=== PATIENT | female | born 1960 | race Caucasian/White ===

== ENCOUNTER 2019-03-21 12:40 | Observation (INO) ==
--- NOTE | 2019-03-21 13:08 | Diag Imaging Result Doc PS360 ---
EXAM: CHEST-2 VIEWS INDICATION: CP TECHNIQUE: 2 views COMPARISON: None. FINDINGS: There are scattered calcified granulomata throughout both lungs. Lungs are grossly clear, otherwise. There is no discrete pleural fluid collection or pneumothorax. There are calcified mediastinal lymph nodes indicating prior granulomatous disease. The cardiomediastinal silhouette and central vasculature are grossly unremarkable, otherwise. IMPRESSION: No evidence of acute pathology by plain radiograph. Electronically signed by Adolfo Hutson 03/21/2019 1:06 PM
[2019-03-21 13:48] LABS: BASO# 0.04 X1000 (0.0-0.2); BASO% 0.4 % (0.0-0.8); EOS# 0.16 X1000 (0.0-0.7); EOS% 1.6 % (0.0-10.0); HEMATOCRIT 39.3 % (37.0-47.0); HEMOGLOBIN 12.4 g/dL (12.0-16.0); LYMPH# 2.46 X1000 (1.2-3.4); LYMPH% 24.8 % (20.5-51.1); MCH 28.8 PG (27-31); MCHC 31.6 g/dL (33-37); MCV 91.4 FL (81-99); MONO# 0.88 X1000 (0.11-0.59); MONO% 8.9 % (1.7-9.3); MPV 9.8 FL (7.4-10.4); NEUT# 6.36 X1000 (1.4-6.5); NEUT% 64.3 % (42.2-75.2); PLT 292 X1000 (130-400); RDW 13.9 % (11.5-14.5)
[2019-03-21] MEDS ORDERED: NITROGLYCERIN SL ONE (13:49)
[2019-03-21] MEDS ORDERED: NITROGLYCERIN TOP ONE (13:49)
[2019-03-21 13:51] LABS: URINE SOURCE CLEAN CATCH
[2019-03-21 13:51] LABS: INR 0.89; PROTIME 12.8 Seconds (11.0-16.0)
[2019-03-21 13:52] LABS: PTT 25.2 Seconds (22.3-41.8)
[2019-03-21 14:00] LABS: BILIRUBIN URINE NEGATIVE (NEGATIVE); BLOOD URINE NEGATIVE (NEGATIVE); COLOR YELLOW; GLUCOSE URINE NEGATIVE (NEGATIVE); KETONE URINE TRACE mg/dL (NEGATIVE); LEUKOCYTES URINE NEGATIVE (NEGATIVE); NITRITE URINE NEGATIVE (NEGATIVE); PROTEIN URINE TRACE mg/dL (NEGATIVE); SP GRAVITY URINE 1.035; TURBIDITY URINE CLEAR (CLEAR); UROBILINOGEN URINE 2 mg/dL (NORMAL)
[2019-03-21 14:01] LABS: UR EPITHELIAL CELLS <10 /HPF (<10); URINE BACTERIA NEGATIVE /HPF; URINE RBC <10 /HPF (<10); URINE WBC <10 /HPF (<10)
[2019-03-21 14:18] LABS: AGAP 11; ALB/GLOB RATIO 1.6; ALBUMIN 3.6 g/dL (3.5-5.0); ALKALINE PHOSPHATASE 95 U/L (32-104); BUN 15 mg/dL (8-22); CALCIUM 9.4 mg/dL (8.8-10.2); CHLORIDE 104 mmol/L (98-107); CK PROFILE 25 U/L (24-173); COSMO 289; CREATININE 0.9 mg/dL (0.5-0.9); ESTIMATED GFR > 60; GLUCOSE 149 mg/dL (70-104); GOT 8 U/L (10-30); GPT 9 U/L (10-36); POTASSIUM 4.1 mmol/L (3.5-5.1); SODIUM 143 mmol/L (136-145); TCO2 28 mmol/L (25-35); TOTAL BILIRUBIN < 0.15 mg/dL (0.20-1.00); TOTAL PROTEIN 5.8 g/dL (6.3-8.3)
[2019-03-21 14:33] LABS: UR AMPHETAMINES QUAL NONE DETECTED (NONE DETECT); UR BARBITUATES QUAL NONE DETECTED (NONE DETECT); UR BENZODIAZEPIN QUAL NONE DETECTED (NONE DETECT); UR CANNABINOIDS QUAL NONE DETECTED (NONE DETECT); UR COCAINE QUAL NONE DETECTED (NONE DETECT); UR METHADONE QUAL PRESUMPTIVE POSITIVE (NONE DETECT); UR OPIATES QUAL PRESUMPTIVE POSITIVE (NONE DETECT); UR OXYCODONE QUAL NONE DETECTED (NONE DETECT); UR PCP QUAL NONE DETECTED (NONE DETECT)
--- NOTE | 2019-03-21 14:57 | PROVIDER DOCUMENTATION ---
This chart was entered by Mel Mckeon Scribe, acting as scribe for Krishna Adamson MD. HPI-Chest Pain - General Stated Complaint: chest pain Time Seen by Provider: 03/21/19 12:47 Source: patient Home Medications: Home Medication List Medication Instructions Recorded Confirmed Last Taken Type Hydralazine [Apresoline] 1 tab PO BID 03/21/19 03/21/19 Unknown History Hydrochlorothiazide 1 tab PO DAILY 03/21/19 03/21/19 Unknown History Hydrocodone Bit/Acetaminophen 1 tab PO BID 03/21/19 03/21/19 Unknown History [Hydrocodon-Acetaminoph 7.5-325] Irbesartan [Avapro] 1 tab PO DAILY 03/21/19 03/21/19 Unknown History Metoprolol [Lopressor] 1 tab PO DAILY 03/21/19 03/21/19 Unknown History Pregabalin [Lyrica] 1 cap PO BID 03/21/19 03/21/19 Unknown History Tramadol [Ultram] 1 tab PO BID 03/21/19 03/21/19 Unknown History - History of Present Illness-CP Nature of Presenting Problem: 58yof presents to ED by EMS cc chest pain, pressure, burning that radiates into her back since this morning. Pt reports she took 2 325mg aspirin and and Ativan, with no relief so she called EMS. Pt reports this feels like her 2 previous PR. 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 Location: reports: central Chest Pain Radiation: reports: back Quality of Pain: reports: burning, pressure Onset/Duration: this morning Timing: resolved prior to arrival Context/Activities at Onset: reports: light activity Modifying Factors: improves with: nothing Associated Symptoms: reports: denies symptoms Nitro Today/Relief: 0.4 mg x 1, provided by EMS, complete relief Aspirin Treatment Today: 325 mg x 1, provided at home Prior Chest Pain/Cardiac Workup: reports: heart attack Similar Symptoms Previously?: Yes Recently Seen Here or By Another Healthcare Provider: No Review of Systems - Adult - REVIEW OF SYSTEMS - ADULT Constitutional: reports: see HPI. denies: chills, fever, fatique Eyes: reports: no symptoms reported Ears, Nose, Mouth & Throat: reports: no symptoms reported Cardiovascular: reports: see HPI, chest pain. denies: palpitations, syncope Respiratory: reports: no symptoms reported Gastrointestinal: reports: see HPI. denies: diarrhea, nausea, vomiting Genitourinary: reports: no symptoms reported Musculoskeletal: reports: no symptoms reported Integumentary: reports: no symptoms reported Neurological: reports: no symptoms reported Psychiatric: reports: no symptoms reported Endocrine: reports: no symptoms reported Hematologic/Lymphatic: reports: no symptoms reported Allergic/Immunologic: reports: no symptoms reported All Other Systems: Reviewed and Negative Past History - Adult - PAST MEDICAL HISTORY-ADULT Review of Records: reports: Nursing Assessment Review, Medications Reviewed, Social history reviewed & non-contributory. Major Childhood Illnesses: reports: denies history Cardiovascular: reports: denies history Respiratory: reports: denies history Gastrointestinal: reports: denies history Obstetrical/Gynecological: reports: denies history Genitourinary: reports: denies history Musculoskeletal: reports: denies history Neurological: reports: denies history Endocrine/Immune: reports: denies history Other Conditions: reports: denies history - IMMUNIZATION STATUS Childhood Immunizations: See Nurse Assessment Flu Vaccine: See Nurse Assessment - FAMILY HISTORY Family History: reviewed, not pertinent - SOCIAL HISTORY Smoking: cigarettes, greater than 1 pack/day Provider spent 3-5 mins advising pt. on dangers of tobacco.: Discussed manners to quit use, and f/u contacts for add'l counseling. Substance Use: none/never Alcohol Use Frequency: rarely Living Situation: family (visiting from [place]) Physical Exam-General - PHYSICAL EXAM-ADULT Initial Vital Signs Reviewed: Yes - CONSTITUTIONAL General Appearance: appears well, alert, no apparent distress, anxious. negative: combative - EYES Eyes: PERRL/EOMI, pink conjunctivae. negative: meningismus, pale conjunctivae, photophobia - HEAD, EARS, NOSE, MOUTH & THROAT HENMT: normocephalic/atraumatic, moist mucous membranes, normal ENT inspection. negative: angioedema - RESPIRATORY Respiratory: chest non-tender, lungs clear, normal breath sounds, no pleuratic chest pain, no respiratory distress, no accessory muscle use. 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 negative: bradycardia, tachycardia - SKIN Integumentary: normal color, normal turgor, warm/dry. negative: cyanosis, diaphoresis, jaundice - PSYCHIATRIC Psych/Mental Status: normal mood/affect, normal thought content, normal thought process, oriented x 3, anxious. negative: disoriented x 3, disheveled, depressed affect - HEART Score HEART Score: History: Moderately Suspicious (MODERATE RISK) HEART Score: ECG: Non-Specific Repolarization Disturbance/LBBB/PM HEART Score: Age: 45-65 Years HEART Score: Risk Factors for Atherosclerotic Disease: > or = 3 Risk Factors or History of Atherosclerotic Disease HEART Score: Troponin: < or = Normal Limit (MODERATE RISK) Total HEART Score:: 5 Progress - PLAN OF CARE/RESULTS Progress/Plan/Lab Results: Vital Signs - 8 hr 03/21/19 12:47 03/21/19 12:55 03/21/19 14:02 Temperature 98.5 F Pulse Rate 86 84 90 Respiratory Rate 16 23 16 Blood Pressure 100/58 144/83 117/86 O2 Sat by Pulse Oximetry 95 95 96 03/21/19 14:03 03/21/19 14:10 03/21/19 14:13 Temperature Pulse Rate 90 91 H 87 Respiratory Rate 17 15 17 Blood Pressure 104/40 O2 Sat by Pulse Oximetry 97 95 95 03/21/19 14:20 03/21/19 14:22 Temperature Pulse Rate 88 86 Respiratory Rate 18 20 Blood Pressure 126/59 O2 Sat by Pulse Oximetry 94 L 92 L Laboratory Results - last 24 hr 03/21/19 03/21/19 03/21/19 13:33 13:33 13:33 WBC 9.90 RBC 4.30 Hgb 12.4 Hct 39.3 MCV 91.4 MCH 28.8 MCHC 31.6 L RDW Std Deviation 13.9 Plt Count 292 MPV 9.8 Neut % (Auto) 64.3 Lymph % (Auto) 24.8 Ida % (Auto) 8.9 Eos % (Auto) 1.6 Baso % (Auto) 0.4 Neut # (Auto) 6.36 Lymph # (Auto) 2.46 Ida # (Auto) 0.88 H Eos # (Auto) 0.16 Baso # (Auto) 0.04 PT INR PTT (Actin FS) Sodium 143 Potassium 4.1 Chloride 104 Carbon Dioxide 28 Anion Gap 11 BUN 15 Creatinine 0.9 Estimated GFR/1.73 m2 > 60 BUN/Creatinine Ratio 17 Glucose 149 H Calculated Osmolality 289 Calcium 9.4 Total Bilirubin < 0.15 L AST 8 L ALT 9 L Alkaline Phosphatase 95 Creatine Kinase 25 Troponin T Dtu-F-Kftjlduwghx Pept 307 H Total Protein 5.8 L Albumin 3.6 Globulin 2.2 Albumin/Globulin Ratio 1.6 Urine Source Urine Color Urine Turbidity Urine pH Ur Specific [place] Urine Protein Ur Glucose (Stick) Ur Ketones (Stick) Urine Blood Urine Nitrite Urine Bilirubin Urobilinogen Dipstick Urine Leukocytes Urine WBC (Auto) Urine RBC (Auto) U Epithel Cells (Auto) Urine Bacteria (Auto) Urine Opiates Screen Ur Oxycodone Screen Ur Methadone, Qual Ur Barbiturates Screen Ur Phencyclidine Scrn Ur Amphetamines Screen U Benzodiazepines Scrn Urine Cocaine Screen U Cannabinoids Screen 03/21/19 03/21/19 03/21/19 13:33 13:33 13:37 WBC RBC Hgb Hct MCV MCH MCHC RDW Std Deviation Plt Count MPV Neut % (Auto) Lymph % (Auto) Ida % (Auto) Eos % (Auto) Baso % (Auto) Neut # (Auto) Lymph # (Auto) Ida # (Auto) Eos # (Auto) Baso # (Auto) PT 12.8 INR 0.89 PTT (Actin FS) 25.2 Sodium Potassium Chloride Carbon Dioxide Anion Gap BUN Creatinine Estimated GFR/1.73 m2 BUN/Creatinine Ratio Glucose Calculated Osmolality Calcium Total Bilirubin AST ALT Alkaline Phosphatase Creatine Kinase Troponin T < 0.010 Gxg-S-Qiwnanqddby Pept Total Protein Albumin Globulin Albumin/Globulin Ratio Urine Source CLEAN CATCH Urine Color YELLOW Urine Turbidity CLEAR Urine pH 5.0 Ur Specific [place] 1.035 Urine Protein TRACE A Ur Glucose (Stick) NEGATIVE Ur Ketones (Stick) TRACE A Urine Blood NEGATIVE Urine Nitrite NEGATIVE Urine Bilirubin NEGATIVE Urobilinogen Dipstick 2 A Urine Leukocytes NEGATIVE Urine WBC (Auto) <10 Urine RBC (Auto) <10 U Epithel Cells (Auto) <10 Urine Bacteria (Auto) NEGATIVE Urine Opiates Screen Ur Oxycodone Screen Ur Methadone, Qual Ur Barbiturates Screen Ur Phencyclidine Scrn Ur Amphetamines Screen U Benzodiazepines Scrn Urine Cocaine Screen U Cannabinoids Screen 03/21/19 13:37 WBC RBC Hgb Hct MCV MCH MCHC RDW Std Deviation Plt Count MPV Neut % (Auto) Lymph % (Auto) Ida % (Auto) Eos % (Auto) Baso % (Auto) Neut # (Auto) Lymph # (Auto) Ida # (Auto) Eos # (Auto) Baso # (Auto) PT INR PTT (Actin FS) Sodium Potassium Chloride Carbon Dioxide Anion Gap BUN Creatinine Estimated GFR/1.73 m2 BUN/Creatinine Ratio Glucose Calculated Osmolality Calcium Total Bilirubin AST ALT Alkaline Phosphatase Creatine Kinase Troponin T Uaz-V-Fiufedvolyh Pept Total Protein Albumin Globulin Albumin/Globulin Ratio Urine Source Urine Color Urine Turbidity Urine pH Ur Specific [place] Urine Protein Ur Glucose (Stick) Ur Ketones (Stick) Urine Blood Urine Nitrite Urine Bilirubin Urobilinogen Dipstick Urine Leukocytes Urine WBC (Auto) Urine RBC (Auto) U Epithel Cells (Auto) Urine Bacteria (Auto) Urine Opiates Screen PRESUMPTIVE POSITIVE A Ur Oxycodone Screen NONE DETECTED Ur Methadone, Qual PRESUMPTIVE POSITIVE A Ur Barbiturates Screen NONE DETECTED Ur Phencyclidine Scrn NONE DETECTED Ur Amphetamines Screen NONE DETECTED U Benzodiazepines Scrn NONE DETECTED Urine Cocaine Screen NONE DETECTED U Cannabinoids Screen NONE DETECTED Orders Category Date Time Status Cardiac Monitoring DIRECTED Care 03/21/19 12:51 Active Nursing- Obtain EKG once Care 03/21/19 13:49 Active Saline Loc NOW Care 03/21/19 12:51 Active CHEST-2 VIEWS [RAD] Stat Exams 03/21/19 12:51 Completed CBC WITH ELECTRONIC DIFF [HEME] Stat Lab 03/21/19 13:33 Completed CK PROFILE [SP CHEM] Stat Lab 03/21/19 13:33 Completed COMPREHENSIVE METABOLIC PANEL [CHEM] Stat Lab 03/21/19 13:33 Completed PRO B-NATRIURETIC PEPTIDE Stat Lab 03/21/19 13:33 Completed PROTIME WITH INR [COAG] Stat Lab 03/21/19 13:33 Completed PTT [COAG] Stat Lab 03/21/19 13:33 Completed TROPONIN T Stat Lab 03/21/19 13:33 Completed TROPONIN T Stat Lab 03/21/19 14:52 Uncollected URINALYSIS W/POSS RFLX CULT [URINALYSIS] Stat Lab 03/21/19 13:37 Completed URINE DRUG SCREEN Stat Lab 03/21/19 13:37 Completed Nitroglycerin Med 03/21/19 13:49 Discontinued 1 inch TOP NOW ONE Nitroglycerin Sl [Nitroglycerin] Med 03/21/19 13:49 Discontinued 0.4 mg SL NOW ONE CP/SOB/Palp >45 yrs of Age Stat Oth 03/21/19 12:50 Ordered EKG [EKG] Stat Ther 03/21/19 12:51 Ordered EKG [EKG] Stat Ther 03/21/19 13:49 Ordered EKG [EKG] Stat Ther 03/21/19 14:52 Ordered Result Diagrams: 03/21/19 13:33 03/21/19 13:33 - REASSESSMENT Reassessment #1 Time Reassessed: 13:50 Status: worsening (CP returned. Will give NTG SL, NTP and obtain repeat EKG STAT) Reassessment #2 Time Reassessed: 14:54 Status: improving (Chest Pain is gone, relieved by NTG SL x 1. Now has nitro paste.) - EKG 1 Time of EKG reading by physician:: 12:55 EKG Read and Signed by:: Krishna Adamson EKG Interpretation (*Must complete 3 of following elements*): Abnormal (border line) Rate: 84 Rhythm: normal sinus QRS: RBB (incomplete) [place] Interval: normal ST Wave: non-specific ST changes 2 Time of EKG reading by physician:: 13:56 EKG Read and Signed by:: Krishna Adamson EKG Interpretation (*Must complete 3 of following elements*): Abnormal Rate: 89 Rhythm: nsr Allred: normal QRS: RBB (right hemiblock), other (early transition, PACs) [place] Interval: normal ST Wave: non-specific ST changes Prior EKG Comparison: unchanged from prior Comments: significant artifact present - XRAY 1 XRAY Study: Chest Impression: See EMR Report ( IMPRESSION: No evidence of acute pathology by plain radiograph. Electronically signed by Adolfo Hutson 03/21/2019 1:06 PM 03/21/19 1306) - CONSULTS/PCP/HOSPITALIST Notification #1 *Consult/PCP/Hospitalist*: JEANNIE Euceda paged at [phone] for admission Time Discussed: 14:57 Consult Disposition: Admit ([facility]) Departure - Departure Date of Disposition Decision: 03/21/19 Time of Disposition Decision: 14:55 DIAGNOSIS: Chest pain of uncertain etiology, Unstable angina, Opioid dependence in controlled environment, Tobacco use disorder Disposition: ADMITTED INPATIENT 09 Certified Medical Emergency: Emergent Condition: Stable Referrals and Follow-Ups: None,PCP [Primary Care Provider] - - Critical Care Note This patient required my direct & personal management of CC.: No Attestation - Physician/ OMARI Attestation Patient care was provided by Advanced Practice Provider:: No The physician spent face to face time with patient:: Yes Advanced Practice Provider documentation review:: Supervising physician onsite and consulted in the evaluation and care of this patient. The physician did have a face to face encounter with the patient. This chart was documented by the indicated scribe, (Mel Mckeon Scribe) and accurately reflects the services I performed and decisions made by me, Krishna Adamson MD, as attested by the provider's signature.
--- NOTE | 2019-03-21 15:08 | ED EKG INTERP ---
EKG Interpretation - EKG Time of EKG reading by physician:: 15:07 EKG Read and Signed by:: Krishna Adamson EKG Interpretation (*Must complete 3 of following elements*): Abnormal Rate: 83 Rhythm: NSR [place]: normal QRS: other (right hemiblock, poor tracing) [place] Interval: normal ST Wave: non-specific ST changes Prior EKG Comparison: unchanged from prior Attestation - Physician/ OMARI Attestation Patient care was provided by Advanced Practice Provider:: No The physician spent face to face time with patient:: Yes Advanced Practice Provider documentation review:: Supervising physician onsite and consulted in the evaluation and care of this patient. The physician did have a face to face encounter with the patient.
[2019-03-21] MEDS ORDERED: ZOFRAN IV PRN (16:18)
[2019-03-21] MEDS ORDERED: TYLENOL PO PRN (16:18)
[2019-03-21] MEDS: NITROGLYCERIN TOP SCH (19:27)
[2019-03-21] MEDS: CYMBALTA PO SCH ×2 (19:47→20:54)
[2019-03-21] MEDS: APRESOLINE PO SCH ×2 (19:47→20:53)
[2019-03-21] MEDS: ELAVIL PO SCH (19:47)
[2019-03-21] MEDS: NORCO-7.5 PO SCH ×2 (19:47→20:52)
[2019-03-21] MEDS: LYRICA PO SCH ×2 (19:47→20:53)
[2019-03-21] MEDS: ULTRAM PO SCH ×2 (19:48→20:53)
--- NOTE | 2019-03-21 20:51 | EKG Report ---
Test Performed on : 03/21/2019 1:50:08 PM Test Reason : CP Blood Pressure : / mmHG Vent. Rate : 089 BPM Atrial Rate : 089 BPM P-R Int : 116 ms QRS Dur : 094 ms QT Int : 448 ms P-R-T Axes : 005 018 066 degrees QTc Int : 545 ms Sinus rhythm. with premature atrial complexes. Anterior infarct , age undetermined ST & T wave abnormality, consider lateral ischemia Prolonged QT Abnormal ECG When compared with ECG of 21-MAR-2019 12:46, (Unconfirmed) premature atrial complexes. are now present T wave amplitude has increased in Inferior leads T wave inversion now evident in Anterolateral leads QT has lengthened Unconfirmed Result
--- NOTE | 2019-03-21 20:52 | EKG Report ---
Test Performed on : 03/21/2019 12:46:53 PM Test Reason : cp Blood Pressure : / mmHG Vent. Rate : 084 BPM Atrial Rate : 084 BPM P-R Int : 116 ms QRS Dur : 096 ms QT Int : 392 ms P-R-T Axes : 020 011 033 degrees QTc Int : 463 ms Normal sinus rhythm. Incomplete right bundle branch block Borderline ECG No previous ECGs available Unconfirmed Result
--- NOTE | 2019-03-21 21:01 | EKG Report ---
Test Performed on : 03/21/2019 7:53:33 PM Test Reason : ches pain Blood Pressure : / mmHG Vent. Rate : 079 BPM Atrial Rate : 079 BPM P-R Int : 122 ms QRS Dur : 094 ms QT Int : 406 ms P-R-T Axes : 030 040 044 degrees QTc Int : 465 ms Normal sinus rhythm. Normal ECG When compared with ECG of 21-MAR-2019 13:50, (Unconfirmed) premature atrial complexes. are no longer present T wave inversion no longer evident in Anterolateral leads QT has shortened Confirmed by Julio Velasco MD ([id number]) on 03/24/2019 9:10:32 PM
--- NOTE | 2019-03-21 22:21 | HISTORY AND PHYSICAL ---
PRIMARY CARE PROVIDER: In [place]. CHIEF COMPLAINT: Chest pain x2 days. HISTORY OF PRESENT ILLNESS: Ms. Rayo is a 58-year-old female who is a resident in [place] but goes back and forth between [place] and [place], [place]. She is here visiting her daughter who lives in [place]. She reports a past medical history of coronary artery disease, status post 2 stents; 2 MIs, one in 2010 and one in 2013; hypertension; neuropathy; hyperlipidemia; spinal stenosis; lower extremity edema; GERD; COPD; tobacco use and abuse. She reports she had driven into town yesterday and had been up for a really long time. She was playing with her grandchildren when the chest pain began. It was in the center of her chest and went into her upper back. It was intermittent, but now has become constant and the only relief that she has gotten from it is with 2 nitroglycerin. Workup in the ED revealed 2 negative cardiac enzymes. EKG shows normal sinus rhythm with nonspecific ST changes. Chest x-ray with no acute process. She denies any associated nausea, vomiting, shortness of breath, dizziness, syncope, palpitations or diaphoresis. 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 We will admit her in observation status; however, she states that she has to leave tomorrow and drive back to [place] because she has to get to work. I tried to advise the patient against leaving and being fully worked up with her cardiac history; however, she said she must leave. PAST MEDICAL HISTORY: 1. SC x2, status post stenting. 2. Hypertension. 3. Neuropathy. 4. Hyperlipidemia. 5. Spinal stenosis. 6. Lower extremity edema. 7. Tobacco use and abuse. PAST SURGICAL HISTORY: Stents in 2010 in 2013; stress test in [place], [place] in 2016. FAMILY HISTORY: Father from an [place] at the age of 51. Three sisters with diabetes. Mother in hospice. She did not know the cause. SOCIAL HISTORY: She is from [place]; however, she travels back and forth between [place] and [place], [place]. She has a daughter who lives here in [place]. She is a 2-icsw-dno-day smoker x30 years. Denies any alcohol or illicit drug use. ALLERGIES: Neurontin; stated every adverse side effect she could have, she had. HOME MEDICATIONS: 1. Apresoline 1 tablet p.o. b.i.d. 2. Hydrochlorothiazide 1 tablet p.o. daily. 3. [place] 7.5/325 one tablet p.o. b.i.d. 4. Avapro 1 tablet p.o. daily; however, the patient has been out for some time now. 5. Lopressor 1 tablet p.o. daily. 6. Lyrica 1 capsule p.o. b.i.d. 7. Ultram 1 tablet p.o. b.i.d. REVIEW OF SYSTEMS: Twelve-point review of systems completed and negative except for those mentioned in HPI. PHYSICAL EXAMINATION: VITAL SIGNS: Temperature is 98.5 degrees, heart rate 86, respirations 20, blood pressure 126/59, O2 is 92% on room air. GENERAL: Ms. Rayo is a 58-year-old female who is sitting up in the stretcher in no acute distress. HEENT: Atraumatic, normocephalic. PERRL. NECK: Supple. Trachea midline. CARDIOVASCULAR: S1, S2 appreciated. No murmurs, gallops or rubs noted. RESPIRATORY: Lung sounds clear bilaterally. GASTROINTESTINAL: Soft, nontender, nondistended. Positive bowel sounds x4 quadrants. EXTREMITIES: Negative for edema. Bilateral pedal pulses were palpable. SKIN: Warm, dry and intact. NEUROLOGIC: The patient is awake, alert and oriented. Follows commands, moves all extremities. No focal deficits noted. DIAGNOSTIC DATA: Chest x-ray: No evidence of acute pathology. EKG: Normal sinus rhythm with nonspecific ST changes, 83 beats per minute. LABORATORY DATA: White count 9, hemoglobin and hematocrit 12 and 39, platelet count 292,000. Sodium 143, potassium 4.1, BUN 15, creatinine 0.9, glucose is 149. Two sets of cardiac enzymes have been negative. Urinalysis is negative for nitrites, negative for bacteria. Positive for opiates and methadone. ASSESSMENT AND PLAN: 1. Chest pain in a patient with a coronary artery disease, status post 2 myocardial infarctions in 2010 and 2013. She states she has 3 stents. Unsure where the stents were placed. We will do a full cardiac workup, echocardiogram, stress test on Saturday. Check another set of cardiac enzymes. Continue her home medications when verified. Continue on a statin. Check a lipid profile. Check hemoglobin A1c. The patient states that she will be leaving tomorrow, however. She has to go back to [place] to go to work. 2. Hypertension. We will continue home medications. 3. Neuropathy. Continue Lyrica. 4. Hyperlipidemia. Continue statin. 5. Spinal stenosis. Continue home medications. 6. Lower extremity edema. Continue hydrochlorothiazide. 7. Gastroesophageal reflux disease. 8. Chronic obstructive pulmonary disease without exacerbation. 9. Tobacco use and abuse. The patient has been educated on smoking cessation as well as the means to quit. Further recommendation to follow physician evaluation, laboratory and diagnostic data. Dictated by JEANNIE Alvarado for Rand Celeste MD cc: Rand Celeste MD
[2019-03-22] MEDS: NITROGLYCERIN TOP SCH ×4 (00:02→17:45)
[2019-03-22] MEDS: ELAVIL PO SCH ×2 (00:02→22:07)
[2019-03-22] MEDS: PRILOSEC PO SCH ×2 (05:43→06:02)
[2019-03-22 06:38] LABS: BASO# 0.04 X1000 (0.0-0.2); BASO% 0.5 % (0.0-0.8); EOS# 0.12 X1000 (0.0-0.7); EOS% 1.5 % (0.0-10.0); HEMATOCRIT 40.7 % (37.0-47.0); LYMPH# 2.24 X1000 (1.2-3.4); LYMPH% 27.4 % (20.5-51.1); MCHC 31.9 g/dL (33-37); MCV 90.6 FL (81-99); MONO# 0.69 X1000 (0.11-0.59); MONO% 8.4 % (1.7-9.3); NEUT# 5.09 X1000 (1.4-6.5); NEUT% 62.2 % (42.2-75.2); PLT 311 X1000 (130-400); RBC 4.49 XMIL (4.2-5.4); RDW 13.9 % (11.5-14.5); WBC 8.18 X1000 (4.8-10.8)
[2019-03-22 07:12] LABS: AGAP 10; ALB/GLOB RATIO 1.3; ALBUMIN 3.7 g/dL (3.5-5.0); ALKALINE PHOSPHATASE 100 U/L (32-104); BUN 17 mg/dL (8-22); CALCIUM 9.2 mg/dL (8.8-10.2); CHLORIDE 102 mmol/L (98-107); CHOLESTEROL 159 mg/dL (0-200); COSMO 284; CREATININE 0.8 mg/dL (0.5-0.9); ESTIMATED GFR > 60; GLUCOSE 116 mg/dL (70-104); GOT 10 U/L (10-30); GPT 8 U/L (10-36); HDL 51 mg/dL (45-65); LDL 87 mg/dL; POTASSIUM 4.2 mmol/L (3.5-5.1); SODIUM 141 mmol/L (136-145); TCO2 29 mmol/L (25-35); TOTAL BILIRUBIN < 0.15 mg/dL (0.20-1.00); TOTAL PROTEIN 6.6 g/dL (6.3-8.3); TRIGLYCERIDES 104 mg/dL (35-135); VLDL 21 mg/dL
--- NOTE | 2019-03-22 07:54 | Diag Imaging Result Doc PS360 ---
EXAM: CHEST-PORTABLE INDICATION: Chest Pain TECHNIQUE: One view COMPARISON: 03/21/2019 FINDINGS: Multiple calcified granulomata are again noted. No new consolidations are identified. The lungs remain clear. There is no discrete pleural fluid collection or pneumothorax. Cardiac silhouette is stable. IMPRESSION: Stable chest. Electronically signed by Adolfo Hutson 03/22/2019 7:52 AM
[2019-03-22] MEDS ORDERED: ASPIRIN PO SCH (09:00)
[2019-03-22] MEDS: NORCO-7.5 PO SCH ×2 (09:16→22:07)
[2019-03-22] MEDS: AVAPRO PO SCH (09:17)
[2019-03-22] MEDS: LYRICA PO SCH ×2 (09:18→22:07)
[2019-03-22] MEDS: APRESOLINE PO SCH ×2 (09:20→22:08)
[2019-03-22] MEDS: LOPRESSOR PO SCH (09:21)
[2019-03-22] MEDS: ASPIRIN EC PO SCH (09:22)
[2019-03-22] MEDS: HYDROCHLOROTHIAZIDE PO SCH (09:23)
[2019-03-22] MEDS: ULTRAM PO SCH ×2 (09:31→22:08)
--- NOTE | 2019-03-22 12:02 | CARDIOLOGY CONSULTATION ---
DATE: 03/22/2019 CHIEF COMPLAINT: Chest pain. HISTORY OF PRESENT ILLNESS: Ms. Rayo is a 58-year-old female who lives in [place]. She was recently traveling over here to visit her daughter. On Saturday, after she came here, she began having intermittent episodes at least daily of a burning, aching type discomfort in her mid chest that would last for a couple of minutes. It was nonexertional in nature. She continues to smoke. She reports a previous history of PCI. She had no associated symptoms of diaphoresis, nausea, or vomiting. PAST MEDICAL HISTORY: 1. Significant for coronary artery disease with previous stenting. I am unclear if this actually involved a myocardial infarction. 2. Hypertension. 3. Hyperlipidemia. 4. Spinal stenosis. 5. Continued tobacco abuse. SOCIAL HISTORY: She lives in [place]. Frequent traveler to [place] as well as [place], visiting family. She smokes 1 pack per day. I counseled her against continued tobacco usage. FAMILY HISTORY: Father had an WA at 51. She has sisters with diabetes. REVIEW OF SYSTEMS: Ten system review of systems is negative except for those things mentioned in the HPI. PHYSICAL EXAMINATION: Vital Signs: She is afebrile. Heart rate 92. Blood pressure on presentation was 100/58. She has had widely erratic blood pressures, anywhere from [address] up to 200 systolic. General: She is in no acute distress. Somewhat anxious. HEENT: Oropharynx is moist. Poor dentition. Eye examination shows pink conjunctivae and white sclerae. Neck: Examination shows no obvious thyromegaly or thyroid tenderness. Cardiovascular: She sounds to be in a regular rate and rhythm. She has no obvious murmurs. She has no S3. She has no lower extremity edema. Chest: Examination sounds clear bilaterally. She has no increased work of breathing. Abdomen: Soft, nontender, nondistended. No obvious organomegaly. Skin Examination: Warm and dry throughout without any rashes. Neurological Examination: She is moving all extremities well. She has no lateralizing deficits. Psychiatric: She is alert, oriented, pleasant. She has a normal mood and affect. PERTINENT DATA: Chest x-ray shows no evidence of any acute pathology. That was on presentation. Subsequent repeat shows no evidence of any abnormalities. Her EKG on presentation on the at 1350 shows sinus rhythm, 89 beats per minute. Very poor baseline data quality. No obvious ischemic changes. No evidence of previous infarct. Subsequent EKG on the at 1246, sinus rhythm. No ischemic changes. No signs of infarct. Final EKG on the at 1953, sinus rhythm. No ischemic changes. No signs of infarct. Lab data: White count 8.1, hematocrit 40, platelet count is 311,000. Sodium 141, potassium 4.2, BUN 17, creatinine 0.8. Cardiac enzymes are negative times multiple sets. LDL is 87. ASSESSMENT: Ms. Rayo is a 58-year-old female who presents with complaints of chest pain that is atypical in nature. PLAN: I will check a D-dimer. If it is elevated, we will consider doing a CTA. She has had some bouts of chest pain. She is a smoker and she has recent long distance travel. Her cardiac enzymes have been negative. I will initiate statin therapy as it does not look like she is on one. I have counseled her against further smoking. If the evaluation for pulmonary embolus is negative, then we can proceed with perfusion imaging in the morning. cc: Tyrese Mcdonald MD
--- NOTE | 2019-03-22 16:03 | PROGRESS NOTE ---
DATE: 03/22/2019 SUBJECTIVE: The patient states that she has been having chest pain overnight and into this morning. OBJECTIVE: Vital Signs: Temperature 98.5 degrees, blood pressure 156/69, heart rate 90, respirations 12, O2 saturation is 97% on room air. General: This is an overweight female sitting in bed, in no acute distress. Heart: S1, S2 normal. Regular rate and rhythm. Lungs: Equal air entry bilaterally. Abdomen: Positive bowel sounds. Soft, nontender, nondistended. Extremities: No edema. No cyanosis. Neurologic: The patient is alert and oriented x4. LABS: Reviewed. ASSESSMENT AND PLAN: 1. Chest pain. The patient has a significant cardiac history. The stress test is scheduled for tomorrow. Continue on the current cardiac medications. 2. Hypertension. Continue on the current antihypertensive regimen. 3. Tobacco dependence. The patient has been counseled about smoking cessation. 4. Neuropathy. Continue on Lyrica. 5. Deep vein thrombosis prophylaxis. Will start the patient on Lovenox. cc: Rand Celeste MD MTDD
[2019-03-22] MEDS: LOVENOX SUBQ SCH (17:48)
--- NOTE | 2019-03-22 18:25 | EKG Report ---
Test Performed on : 03/22/2019 06:41:46 AM Test Reason : cp Blood Pressure : / mmHG Vent. Rate : 085 BPM Atrial Rate : 085 BPM P-R Int : 118 ms QRS Dur : 086 ms QT Int : 386 ms P-R-T Axes : 008 009 026 degrees QTc Int : 459 ms Normal sinus rhythm. Normal ECG When compared with ECG of 21-MAR-2019 19:53, (Unconfirmed) No significant change was found Confirmed by Julio Velasco MD ([id number]) on 03/24/2019 9:11:15 PM
--- NOTE | 2019-03-22 18:30 | ECHO REPORT ---
ORDER DATE: 03/21/2019 INDICATION: Coronary disease, chest pain, hypertension, previous PCI. FINDINGS: 1. Right atrium appears normal in size at 2.7 cm. 2. Trace tricuspid regurgitation. RV systolic pressure 34. 3. Normal RV size and systolic function. 4. No significant pulmonic insufficiency. 5. Normal left atrial size with a volume index of 17.5 dimension of 3.7 cm. 6. No mitral prolapse. Trace mitral regurgitation. No evidence of mitral stenosis. 7. Normal LV size, end-diastolic dimension of 4.3. Normal wall thicknesses with a posterior and interventricular septal wall thickness of 1.0 cm each. They are off axis views on this study, but the ejection fraction appears normal at 65% with no clear evidence of wall motion abnormalities. 8. Aortic valve opens well. No evidence of stenosis or insufficiency. 9. Aorta appears normal in visualized segments. 10. No pericardial effusion seen. 11. On some views, there appears to be gallstones evident. If clinically indicated, would recommend a targeted imaging modality. cc: Tyrese Mcdonald MD
[2019-03-22] MEDS: LIPITOR PO SCH (22:07)
[2019-03-22] MEDS: CYMBALTA PO SCH (22:08)
[2019-03-23] MEDS: NITROGLYCERIN TOP SCH ×4 (00:17→17:40)
[2019-03-23] MEDS: PRILOSEC PO SCH (06:11)
[2019-03-23 06:48] LABS: HEMATOCRIT 42.7 % (37.0-47.0); HEMOGLOBIN 13.6 g/dL (12.0-16.0); MCH 28.9 PG (27-31); MCHC 31.9 g/dL (33-37); MCV 90.9 FL (81-99); MPV 9.6 FL (7.4-10.4); RBC 4.7 XMIL (4.2-5.4); RDW 14.3 % (11.5-14.5); WBC 8.93 X1000 (4.8-10.8)
[2019-03-23 07:02] LABS: AGAP 9; BUN 19 mg/dL (8-22); CALCIUM 8.8 mg/dL (8.8-10.2); CHLORIDE 101 mmol/L (98-107); COSMO 283; CREATININE 0.9 mg/dL (0.5-0.9); ESTIMATED GFR > 60; GLUCOSE 118 mg/dL (70-104); POTASSIUM 4.6 mmol/L (3.5-5.1); SODIUM 140 mmol/L (136-145); TCO2 30 mmol/L (25-35)
[2019-03-23] MEDS: NORCO-7.5 PO SCH ×3 (07:55→21:53)
[2019-03-23] MEDS: ASPIRIN EC PO SCH ×2 (07:55→09:00)
[2019-03-23] MEDS: LOPRESSOR PO SCH ×2 (07:55→15:00)
[2019-03-23] MEDS: ULTRAM PO SCH ×2 (08:03→21:52)
[2019-03-23] MEDS: LYRICA PO SCH ×2 (08:03→21:52)
[2019-03-23] MEDS: AVAPRO PO SCH (08:04)
[2019-03-23] MEDS: HYDROCHLOROTHIAZIDE PO SCH (08:04)
[2019-03-23] MEDS: APRESOLINE PO SCH ×2 (08:04→21:53)
--- NOTE | 2019-03-23 11:23 | Diag Imaging Result Doc PS360 ---
US ABDOMEN-COMPLETE - 03/23/2019 INDICATION: gallstones COMPARISON: None FINDINGS: The liver is moderately, diffusely hyperechoic compatible with fatty change. No liver masses or biliary dilation. Common bile duct measures 5.6 mm. The gallbladder, pancreas, spleen, and both kidneys are normal. The spleen measures 8.7 x 2.7 cm. Aorta, IVC, and main portal vein are patent. IMPRESSION: Hepatic steatosis. Electronically signed by Breezy Squires 03/23/2019 11:20 AM
[2019-03-23] MEDS ORDERED: LEXISCAN ONE (12:47)
[2019-03-23] MEDS ORDERED: MORPHINE IV PRN (14:33)
[2019-03-23] MEDS: LOVENOX SUBQ SCH (16:26)
--- NOTE | 2019-03-23 17:06 | PROGRESS NOTE ---
DATE: 03/23/2019 SUBJECTIVE: The patient states that she had some chest pain this morning. She is scheduled to have a stress test today. OBJECTIVE: Vital Signs: Temperature 98.5 degrees, blood pressure 130/59, heart rate 85, respirations 12, O2 saturation is 97% on room air. General: This is a chronically ill-appearing, elderly female sitting at the edge of the bed, in no acute distress. Heart: S1, S2 normal. Regular rate and rhythm. Lungs: Clear to auscultation bilaterally. Abdomen: Positive bowel sounds. Soft, nontender, nondistended. Extremities: No edema. No cyanosis. Neurologic: The patient is alert and oriented x3. LABS: Reviewed. ASSESSMENT AND PLAN: 1. Chest pain. The patient is scheduled for a stress test today. Will await the results. Continue on the current cardiac medications. 2. Hypertension. Continue on the current antihypertensive regimen. 3. Coronary artery disease status post multiple stents. Aware. 4. Tobacco dependence. The patient has been counseled about smoking cessation. 5. Neuropathy. Continue on Lyrica. 6. Deep vein thrombosis prophylaxis. Continue on Lovenox. cc: Rand Celeste MD
--- NOTE | 2019-03-23 18:54 | CARDIOLOGY PROGRESS NOTE ---
DATE: 03/23/2019 SUBJECTIVE: Ms. Rayo had some onset of discomfort in her midchest occurring after the mid nuclear scan meal. Is nonexertional. PHYSICAL EXAMINATION: She is afebrile, heart rate 81, her blood pressures been significantly erratic with occasional systolics of 100, occasional systolics of 200. General: She is in no acute distress. Cardiovascular: She sounds to be in a regular rate and rhythm. She has no murmurs, no S3, no lower extremity edema. Her chest exam is clear bilaterally. No increased work of breathing. Abdomen: Soft, nontender. PERTINENT DATA: Sodium 140, potassium 4.6, BUN 19, creatinine 0.9. ASSESSMENT: Ms. Rayo 58-year-old female with history of percutaneous coronary intervention present with atypical chest pain. PLAN: We are awaiting the results of the nuclear scan. If this is normal then she can likely be discharged from a cardiovascular standpoint. Her ejection fraction was normal. She did appear to have gallstones present on her echocardiogram so certainly the postprandial pain that she is experiencing occurred with a fatty meal today could indicate some gallbladder disease which could be evaluated in the future. She did have a right upper quadrant ultrasound performed which showed hepatic steatosis. cc: Tyrese Mcdonald MD MTDD
[2019-03-23] MEDS: ELAVIL PO SCH (21:51)
[2019-03-23] MEDS: CYMBALTA PO SCH (21:52)
[2019-03-23] MEDS: LIPITOR PO SCH (21:53)
--- NOTE | 2019-03-23 22:48 | Diag Imaging Result Document ---
PROCEDURE NAME: MYOCARDIAL PERF SCAN, STR/REST - 03/23/2019 STUDY: Rest/stress Lexiscan myocardial perfusion study. INDICATION: Patient with chest pain and abnormal EKG. DESCRIPTION: The patient came into the nuclear laboratory, received resting injection of technetium 99 sestamibi 11.7 mCi. Multiple tomographic views of the cardiac structures were obtained at rest. Subsequently, the patient underwent infusion of Lexiscan 0.4 mg. At peak infusion, injected with technetium 99 sestamibi 33.8 mCi. Multiple tomographic views of the heart were obtained following the completion of the protocol. SUMMARY OF THE ELECTROCARDIOGRAPHIC PORTION OF THE STUDY: Resting ECG shows sinus rhythm, rate 71 beats per minute. Resting blood pressure 195/40. Resting ECG shows nonspecific T wave abnormality across the precordial leads. During protocol, the heart rate increased to 86 beats per minute. Blood pressure went up to 106/44. The patient reported midsternal chest pressure, very severe, requiring nitroglycerin. The ECG showed no significant abnormality other than flattening of the T wave and in the lateral portion of the study there was some more T wave inversion in the lateral leads, V5, V6. Eventually, the patient felt better. In summary, the electrocardiographic response to Lexiscan protocol is deemed to be nonspecific. The patient did seem to have a clinical angina spell during the protocol. SUMMARY OF THE MYOCARDIAL PERFUSION PORTION OF THE STUDY: Poststress tomographic views of the left ventricle showed a moderately extensive mild to moderate in severity anterior apical defect. The rest images showed reversibility. The polar plots revealed the same. There is scintigraphic suggestion of inducible ischemia involving the mid to apical anterior septal portion of the left ventricle. That would correspond to mid to distal LAD lesion. Gated SPECT shows normal left ventricular systolic function with ejection fraction of 75%, normal ventricular volumes, no wall motion abnormality. The lung/heart ratio is normal. TID is elevated at 1.31. SUMMARY: This study shows: 1. Abnormal resting electrocardiogram with an abnormal clinical response suggesting angina induced by the stress test. 2. Abnormal poststress myocardial perfusion scan. There is scintigraphic suggestion of inducible ischemia, probably of significant degree involving the mid to apical anterior wall of the left ventricle. This probably corresponds to a mid to distal left anterior descending stenosis. 3. Normal left ventricular systolic function with ejection fraction estimated at 75%. Clinical correlation is strongly recommended. cc: Roberto Carlos Jose MD
[2019-03-24] MEDS: NITROGLYCERIN TOP SCH ×3 (00:38→13:05)
[2019-03-24] MEDS: PRILOSEC PO SCH (06:40)
[2019-03-24 07:08] LABS: BASO# 0.02 X1000 (0.0-0.2); BASO% 0.2 % (0.0-0.8); EOS# 0.13 X1000 (0.0-0.7); EOS% 1.3 % (0.0-10.0); HEMATOCRIT 41.1 % (37.0-47.0); HEMOGLOBIN 13.2 g/dL (12.0-16.0); IMM GRAN# 0.04 X1000 (0.0-0.04); IMM GRAN% 0.4 % (0.0-0.5); LYMPH# 2.56 X1000 (1.2-3.4); LYMPH% 25.7 % (20.5-51.1); MCH 28.6 PG (27-31); MCHC 32.1 g/dL (33-37); MONO# 0.94 X1000 (0.11-0.59); MONO% 9.4 % (1.7-9.3); MPV 9.9 FL (7.4-10.4); NEUT# 6.29 X1000 (1.4-6.5); PLT 329 X1000 (130-400); RBC 4.62 XMIL (4.2-5.4); RDW 14.2 % (11.5-14.5); WBC 9.98 X1000 (4.8-10.8)
[2019-03-24 07:21] LABS: INR 0.9; PROTIME 12.8 Seconds (11.0-16.0)
[2019-03-24 07:24] LABS: CALCIUM 9.4 mg/dL (8.8-10.2); MAGNESIUM 2.2 mg/dL (1.5-2.7); POTASSIUM 4.8 mmol/L (3.5-5.1)
[2019-03-24] MEDS: AVAPRO PO SCH (08:30)
[2019-03-24] MEDS: ASPIRIN EC PO SCH (08:30)
[2019-03-24] MEDS: ULTRAM PO SCH (08:30)
[2019-03-24] MEDS: NORCO-7.5 PO SCH (08:30)
[2019-03-24] MEDS: LYRICA PO SCH (08:31)
[2019-03-24] MEDS: LOPRESSOR PO SCH (08:31)
[2019-03-24] MEDS: HYDROCHLOROTHIAZIDE PO SCH (08:31)
[2019-03-24] MEDS: APRESOLINE PO SCH (08:31)
[2019-03-24] MEDS ORDERED: HEPARIN 1000 UNITS/NS 2,000 UNIT/1,000 ML IV.SOLN ONE (12:35)
[2019-03-24] MEDS ORDERED: NS 1,000 ML ONE (13:09)
[2019-03-24] MEDS ORDERED: CLAVE TWINSITE 32 IN 11959 ONE (13:09)
[2019-03-24] MEDS ORDERED: ANESTHESIA PB SET 88 IN 5742 ONE (13:09)
[2019-03-24] MEDS ORDERED: VERSED ONE (13:10)
[2019-03-24] MEDS ORDERED: DEMEROL ONE (13:11)
[2019-03-24] MEDS ORDERED: NITROGLYCERIN ONE (14:37)
[2019-03-24 16:17] VITALS: BP 112/48
--- NOTE | 2019-03-24 16:37 | CARDIOLOGY PROGRESS NOTE ---
DATE: 03/24/2019 SUBJECTIVE: Ms. Rayo underwent her cardiac catheterization, demonstrated a severe circumflex lesion/ PHYSICAL EXAMINATION: Vital signs: She is afebrile. Heart rate 70, blood pressure 88/42. Generally: No acute distress. Cardiovascular: She sounds to be in a regular rate and rhythm. She has no murmurs no S3. She has no lower extremity edema. Chest: Clear bilaterally. No increased work of breathing. ABDOMEN: Soft, nontender. PERTINENT DATA: White count 9.9 hematocrit is 41, platelet count is 329,000. Sodium 139, potassium 4.8 BUN 31, creatinine is 1. ASSESSMENT: Ms. Rayo a 58-year-old female who presented with chest pain. PLAN: She has a severe circumflex lesion. She has had some relative hypotension, so I have stopped her hydralazine. In addition, we will plan on stopping her hydrochlorothiazide. I have placed her on amlodipine 5 mg daily to increase her antianginal load. She continues on metoprolol as well as Avapro. We have initiated high-intensity statin therapy. She is on aspirin. We are waiting transfer to [facility] for intervention to the circumflex, cc: Tyrese Mcdonald MD
--- NOTE | 2019-03-24 16:38 | EKG Report ---
Test Performed on : 03/24/2019 4:17:38 PM Test Reason : Post Cath Blood Pressure : / mmHG Vent. Rate : 072 BPM Atrial Rate : 072 BPM P-R Int : 136 ms QRS Dur : 092 ms QT Int : 422 ms P-R-T Axes : 025 019 054 degrees QTc Int : 462 ms Normal sinus rhythm. ST & T wave abnormality, consider anterior ischemia Prolonged QT Abnormal ECG When compared with ECG of 22-MAR-2019 06:41, (Unconfirmed) T wave inversion now evident in Anterior leads Confirmed by Julio Velasco MD ([id number]) on 03/25/2019 6:37:22 PM
--- NOTE | 2019-03-24 16:57 | CARDIAC CATH REPORT ---
DATE: 03/24/2019 PROCEDURES PERFORMED: 1. Left heart catheterization. 2. Selective bilateral coronary arteriography. 3. Left ventriculography. 4. Opacification of the right femoral artery. We did not deploy Angio-Seal device because of high bifurcation of this vessel. HISTORY: A 58-year-old female presenting with increasing chest pain. Prior history of stent to right coronary artery and also to LAD. The patient received a stress test that showed anterior apical ischemia and also basal septal ischemia. Heart catheterization was recommended to confirm or rule out the presence of significant coronary disease. Benefits, risks, and complications were discussed. She understood and requested to proceed. DESCRIPTION OF PROCEDURE: The patient came into the cardiac microbiology lab manager in a fasting state. She received 1 mg of Versed and 25 mg of Demerol for sedation. During the procedure she received 200 mg of intracoronary nitroglycerin. The right groin was infiltrated with lidocaine and then a 6- [place] sheath was inserted into the right femoral artery by following the modified Seldinger technique. Using a 6-[place] 4 left and right Peter catheter, the left and the right coronary artery was sequentially opacified in multiple projections. Thereafter, we advanced a pigtail catheter into the left ventricle and performed a 60 degree [place] projection hand injection angiogram. Then we performed a ventriculogram in 30 degree CLARKE projection by injecting 38 mL at 10 mL per second. Then, the pigtail catheter was removed. The sheath was flushed. The right femoral artery was opacified, however given the anatomical variant where the profunda took off really high in the pelvic area, we did not feel comfortable sealing the superficial femoral and we removed the sheath and hemostasis was accomplished by hand compression. The patient tolerated the procedure well without complications. SUMMARY OF HEMODYNAMIC FINDINGS: Central aortic pressure was 111/47. Left ventricular pressure was 85/9, post LV gram 85/13. Final central aortic pressure was 90/41. SUMMARY OF ANGIOGRAPHIC FINDINGS: 1. Left main coronary artery: This vessel is anatomically normal. It divides into the LAD and circumflex. 2. Left anterior descending coronary artery: This vessel shows an extensive stenosis in the proximal segment prior to the origin of the first septal branch and this is followed by in stent restenosis. The proximal stenosis is in the order of 80% to 90% and in stent restenosis in the order of 50% diffuse. Thereafter the LAD continues down the anterior interventricular groove and reaches the apex of the left ventricle. The LAD proximal gives rise to a first diagonal branch that is free of any significant obstruction. 3. Circumflex coronary artery: The circumflex coronary artery is a nondominant vessel. It gives rise to obtuse marginal system that is large. Off of the marginal system a smaller vessel takes off which has a proximal stenosis of about 80% to 90%. That supplies a tiny area of myocardium. Then,the terminal circumflex is a small AV branch. 4. Right coronary artery: The right coronary artery shows an ostial stenosis of about 40%. The right coronary artery gives rise to sinus hosea branch and conus branch, then gives rise to acute marginal branches. More distally, in the distal third, shows an eccentric 40% to 50% stenosis, then gives rise to the PDA and the posterior ventricular lateral branch. The posterior descending branch shows a proximal 60% stenosis. The posterolateral branch is free of any obstruction.There is evidence of a long patent stent in the mid RCA. LEFT VENTRICULOGRAM: Left ventriculogram in the 30 degree CLARKE projection and the 60 [place] projection shows excellent left ventricular contractility. Ejection fraction is estimated at 65%. No wall motion abnormality is noted. OPACIFICATION OF RIGHT FEMORAL ARTERY: This vessel has an anatomical variant where the profunda really takes off inside the pelvis. The sheath entered the superficial femoral artery at the level of the hip. Decision was made not to deploy Angio-Seal device for fear of occluding the profunda. CONCLUSIONS: In summary this study shows: 1. Severe coronary artery disease with an 80% to 90% proximal left anterior descending stenosis followed by 50% in- stent restenosis. A small OM (secondary) branch circumflex 80% proximal stenosis and a 60% to 70% proximal posterior descending artery stenosis. Patent stent in mid RCA. 2. Excellent left ventricular systolic function with ejection fraction of 65%. 3. No mitral regurgitation. No aortic stenosis. 4. Unremarkable right femoral artery except for a very proximal bifurcation of the profunda and superficial inside the pelvis which precluded the deployment of Angio-Seal device. RECOMMENDATIONS: At this time, the patient will be advised to pursue percutaneous intervention. The benefits, risks, and complications of that have been discussed. We will make arrangements to transfer her to [place] as soon as possible. cc: MD NOEMI Patel
[2019-03-24] MEDS: LOVENOX SUBQ SCH (17:40)
[2019-03-24] MEDS ORDERED: APRESOLINE PO SCH (21:00)
[2019-03-25] MEDS ORDERED: NORVASC PO SCH (09:00)
--- NOTE | 2019-03-25 09:29 | DISCHARGE SUMMARY ---
DATE OF ADMISSION: 03/21/2019 DATE OF DISCHARGE: She is here from [place] presented. She had 2 days of chest pain. A 58-year-old female resident [place] goes back and forth from between [place] and [place], [place]. She is visiting her daughter who lives in [place] and the grandchildren. REPORTS PAST MEDICAL HISTORY: Coronary artery disease 2 stents placed, has history of 2 MIs, 1 in 2010, 1 2013, history of hypertension, neuropathy, hyperlipidemia, spinal stenosis, lower extremity edema, gastroesophageal reflux disease, COPD, tobacco use and abuse. She reports she had driven to town day before admission and had been up for a really long time. She was playing with her grandchildren when chest pain again center of her chest went to her back, intermittent and now has become constant. In the emergency room 2 negative cardiac enzymes. EKG showed normal sinus rhythm with nonspecific ST changes. Chest x-ray, no acute process. She denies any associated nausea, vomiting, shortness of breath, dizziness, syncope, palpitations, diaphoresis. 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 Past medical history again reviewed. 1. Myocardial infarction x2 status post stenting. 2. Hypertension. 3. Neuropathy. 4. Hyperlipidemia. 5. Spinal stenosis. 6. Lower extremity edema. 7. Tobacco use and abuse. SO ADMISSION DIAGNOSIS: 1. Chest pain, patient with history coronary artery disease status post 2 myocardial infarctions 2010, 2013 has had 3 stents placed. Cardiology was consulted. 2. Hypertension. 3. Neuropathy is on Lyrica. 4. Hyperlipidemia, she is on a statin already. 5. Spinal stenosis. 6. Lower extremity edema she is taking hydrochlorothiazide. 7. Gastroesophageal reflux disease. 8. Chronic obstructive pulmonary disease without exacerbation. Cardiology consulted 03/22, her D-dimer was checked and she had some cardiac enzymes which were negative up to this point. She underwent echocardiogram 03/21 she had tricuspid regurgitation, RV systolic pressure 34, normal RV size and systolic function, normal left atrial size, no mitral prolapse, trace mitral regurgitation, normal left ventricular size, ejection fraction 65%. No other valvular dysfunction, no evidence of aortic stenosis or regurgitation. Had myocardial perfusion scan 03/23 abnormal resting EKG, abnormal clinical response suggesting angina induced by stress test, abnormal post stress myocardial perfusion scan, scintigraphic suggestion of inducible ischemia probably significant degree involving the mid apical anterior wall of the left ventricle. This appears to correspond with the mid to distal left anterior descending artery and probable stenosis, normal left ventricular systolic function ejection fraction 75%. She had an abdominal ultrasound 03/23 which suggested hepatic steatosis. Heart catheterization done this morning severe coronary artery disease with 80-90% proximal left anterior descending stenosis followed by 50% in-stent restenosis, a small oblique marginal branch the circumflex, 80% proximal stenosis and 60-70% proximal posterior descending artery stenosis in the mid RCA, patient was sent to [place]. She has severe circumflex lesion has some relative hypotension so we stopped her hydralazine and stopping her hydrochlorothiazide, placed her on amlodipine 5 mg daily to increase her antianginal load and continue the metoprolol as well as the Avapro when she was sent to [facility] on 03/24/2019. cc: Shar Austin MD
== END 2019-03-24 18:30 | disposition short-term general hospital (02) ==
LOC: SUPCPDRO → ED 12:40 → 4N 12:40 → SUATTDRO 15:48 → 3S 03-24 13:23
PROVIDERS: ATTEND Emergency Medicine
CPT/HCPCS: 71010; 71020; 71045; 71046; 76700; 78452; 80048; 80053; 80061; 80101; 80301; 80307; 80324; 80345; 80346; 80353; 80358; 80361; 80365; 81001; 82550; 83735; 83880; 83992; 84484; 85025; 85027; 85379; 85610; 85730; 93005; 93010; 93017; 93306; 93458; 94761; A9270; A9500; G0431; G0434; G0479; G0480; J1644; J1650; J2175; J2250; J2270; J2785; J7030; Q9967